=== PATIENT | male | born 1965 | race Caucasian/White ===

== ENCOUNTER 2022-06-18 08:03 | Day surgery (SDC) | payer SELFPAY ==
[2022-06-18] MEDS ORDERED: Sodium Chloride 0.9% 10 ML Syringe FLUSH PRN (08:45)
[2022-06-18] MEDS ORDERED: Lactated Ringers 1,000 ML IV SCH (08:45)
[2022-06-18] MEDS ORDERED: Glycopyrrolate 0.2 MG/ML 5 ML MDV IV ONE (09:00)
[2022-06-18] MEDS ORDERED: Propofol 200 MG/20 ML SDV IV ONE (09:00)
== END 2022-06-18 10:46 | disposition home or self-care (01) ==
LOC: FB.SDS 08:03
PROVIDERS: ATTEND Surgery
DX: D12.6 Benign neoplasm of colon, unspecified (principal); K57.30 Diverticulosis of large intestine without perforation or abscess without bleeding; K21.9 Gastro-esophageal reflux disease without esophagitis; F17.290 Nicotine dependence, other tobacco product, uncomplicated; G47.00 Insomnia, unspecified; Z79.899 Other long term (current) drug therapy; Z88.0 Allergy status to penicillin
CPT/HCPCS: 00811; 45381; 45385; 88305; J2704; J3490; J7120

== ENCOUNTER 2022-10-29 12:31 | Emergency (ER) | payer SELFPAY ==
[2022-10-29] MEDS ORDERED: Morphine 4 MG/ML VIAL IVPUSH ONE (12:56)
[2022-10-29] MEDS ORDERED: Sodium Chloride 0.9% 10 ML Syringe FLUSH PRN (12:56)
[2022-10-29] MEDS ORDERED: Ondansetron 4 MG/2 ML SDV IVPUSH ONE (12:56)
[2022-10-29] MEDS ORDERED: Sodium Chloride 0.9% 1,000 ML IV SCH (13:00)
[2022-10-29 13:30] LABS: ESTIMATED GFR 79 mL/min (>60)
[2022-10-29] MEDS ORDERED: Iopamidol 755 Mg/ML 100 ML Bottle IV ONE (13:53)
[2022-10-29] MEDS ORDERED: Aspirin 81 MG Tab.Chew PO STA (14:03)
[2022-10-29] MEDS ORDERED: Nitroglycerin 0.4 MG Tab.SL SL PRN (14:04)
[2022-10-29] MEDS ORDERED: Ketorolac 30 MG/ML SDV IVPUSH ONE (14:05)
== END 2022-10-29 16:16 | disposition home or self-care (01) ==
LOC: FB.ED 12:31
DX: N13.2 Hydronephrosis with renal and ureteral calculous obstruction (principal); Z88.0 Allergy status to penicillin; Z79.899 Other long term (current) drug therapy
CPT/HCPCS: 36415; 74177; 80053; 81001; 82150; 83690; 85025; 96361; 96374; 96375; 99283; 99284; J1885; J2270; J2405; J3490; J7030; Q9967

== ENCOUNTER 2023-07-07 12:16 | Emergency (ER) | payer SELFPAY | END 2023-07-07 13:21 | disposition home or self-care (01) | LOC: FB.ED 12:16 | DX: S61.012A Laceration without foreign body of left thumb without damage to nail, initial encounter (principal); Z88.0 Allergy status to penicillin; Z79.899 Other long term (current) drug therapy; F17.200 Nicotine dependence, unspecified, uncomplicated; W26.0XXA Contact with knife, initial encounter | CPT/HCPCS: 12002; 99282; 99283 ==

== ENCOUNTER 2024-12-03 02:12 | Emergency (ER) | payer MEDICAID ==
[2024-12-03] MEDS ORDERED: Sodium Chloride 0.9% 10 ML Syringe FLUSH PRN (02:45)
[2024-12-03 02:56] LABS: BASOPHILS ABSOLUTE AUTO 0.1 x10-3/uL (0.0-0.3); EOSINOPHILS ABSOLUTE AUTO 0.1 x10-3/uL (0.0-0.6); EOSINOPHILS PERCENT AUTO 1.7 % (0.1-6.8); HEMATOCRIT 47.3 % (38.3-50.1); HEMOGLOBIN 16.5 g/dL (12.9-17.7); LYMPHOCYTES ABSOLUTE AUTO 2.9 x10-3/uL (0.5-4.5); LYMPHOCYTES PERCENT AUTO 33.3 % (15.8-45.3); MEAN CORPUSCULAR HEMOGLOBIN 29.7 pg (27.0-33.3); MEAN CORPUSCULAR HGB CONC 34.8 g/dL (28.7-35.3); MEAN CORPUSCULAR VOLUME 85.4 fL (80.8-98.7); MEAN PLATELET VOLUME 8.3 fL (6.7-11.0); MONOCYTES ABSOLUTE AUTO 0.8 x10-3/uL (0.0-1.2); MONOCYTES PERCENT AUTO 8.9 % (5.5-15.2); NEUTROPHILS ABSOLUTE AUTO 4.7 x10-3/uL (1.7-6.9); NEUTROPHILS PERCENT AUTO 55.1 % (40.3-71.8); PLATELET COUNT,PLT 300 x10(3)uL (117-477); RED BLOOD CELL COUNT 5.54 x10(6)uL (3.90-5.90); RED CELL DISTRIBUTION WIDTH 14.9 % (12.4-15.0); WHITE BLOOD CELL COUNT,WBC 8.6 x10-3/uL (3.2-10.1)
[2024-12-03 03:02] LABS: BLOOD UREA NITROGEN,BUN 16 mg/dL (7-18); BUN/CREATININE RATIO 12.3 (9-20); CARBON DIOXIDE,CO2 27 mmol/L (21-32); CHLORIDE,CL 104 mmol/L (100-110); CREATININE 1.3 mg/dL (0.70-1.30); EST CRCL DRUG DOSING (CG) 61.94 mL/min; ESTIMATED GFR 64 mL/min (>60); GLUCOSE RANDOM 182 mg/dL (80-116); POTASSIUM,K 3.9 mmol/L (3.5-5.3); SODIUM,NA 141 mmol/L (135-145)
[2024-12-03 03:05] LABS: BILIRUBIN,URINE NEGATIVE (NEGATIVE); GLUCOSE,URINE NORMAL (NORMAL); KETONES,URINE NEGATIVE (NEGATIVE); LEUKOCYTE ESTERASE,URINE NEGATIVE (NEGATIVE); NITRITE,URINE NEGATIVE (NEGATIVE); OCCULT BLOOD,URINE NEGATIVE (NEGATIVE); PROTEIN,URINE NEGATIVE (NEGATIVE); UROBILINOGEN,URINE NORMAL (NEGATIVE)
[2024-12-03 03:07] LABS: APPEARANCE,URINE CLEAR (CLEAR); COLOR,URINE YELLOW (YELLOW)
[2024-12-03 03:08] LABS: A/G RATIO 1.1; ALANINE AMINOTRANSFERASE,ALT 34 U/L (12-36); ALBUMIN 3.4 g/dL (3.5-5.2); ALKALINE PHOSPHATASE 101 IU/L (56-112); ASPARTATE AMNIOTRANSFERASE,AST 21 IU/L (5-25); BILIRUBIN TOTAL 0.8 mg/dL (0.1-1.3); MAGNESIUM 1.9 mg/dL (1.8-2.5); PROTEIN TOTAL,TP 6.5 g/dL (6.0-8.0)
[2024-12-03] MEDS: Ondansetron 4 MG/2 ML SDV IVPUSH ONE (03:09)
[2024-12-03] MEDS: Sodium Chloride 0.9% 1,000 ML IV SCH (03:09)
[2024-12-03 03:13] LABS: C-REACTIVE PROTEIN < 0.50 mg/dL (<0.50); LIPASE 33 U/L (16-77); TROPONIN I 17.7 pg/mL (4.0-60.3)
[2024-12-03 03:14] LABS: ETHANOL BLOOD MEDICAL < 0.03 % (<0.03)
[2024-12-03] MEDS: Pantoprazole 40 MG Vial IVPUSH ONE (03:30)
[2024-12-03] MEDS: Sodium Chloride 0.9% 500 ML IV ONE (03:31)
[2024-12-03] MEDS: Iopamidol 755 Mg/ML 100 ML Bottle IV SCH (03:55)
== END 2024-12-03 04:47 | disposition home or self-care (01) ==
LOC: FB.ED 02:12
DX: K29.70 Gastritis, unspecified, without bleeding (principal); K29.80 Duodenitis without bleeding; Z88.0 Allergy status to penicillin
CPT/HCPCS: 36415; 74177; 80053; 80307; 81003; 83605; 83690; 83735; 84484; 85025; 86140; 93005; 93010; 96361; 96374; 96375; 99284; 99284-25; J2405; J2470; J7030; J7040; Q9967

== ENCOUNTER 2025-04-15 11:05 | Emergency (ER) | payer MEDICAID ==
[2025-04-15] MEDS: Ondansetron 4 MG/2 ML SDV IVPUSH ONE (11:18)
[2025-04-15] MEDS ORDERED: Sodium Chloride 0.9% 10 ML Syringe FLUSH PRN (11:18)
[2025-04-15] MEDS: diphenhydrAMINE 50 MG/ML SDV IVPUSH ONE (11:22)
[2025-04-15 11:52] LABS: BASOPHILS ABSOLUTE AUTO 0.1 x10-3/uL (0.0-0.3); BASOPHILS PERCENT AUTO 0.9 % (0.3-3.8); EOSINOPHILS ABSOLUTE AUTO 0.1 x10-3/uL (0.0-0.6); EOSINOPHILS PERCENT AUTO 1.7 % (0.1-6.8); LYMPHOCYTES ABSOLUTE AUTO 2.1 x10-3/uL (0.5-4.5); LYMPHOCYTES PERCENT AUTO 28.8 % (15.8-45.3); MEAN PLATELET VOLUME 8.8 fL (6.7-11.0); MONOCYTES ABSOLUTE AUTO 0.4 x10-3/uL (0.0-1.2); MONOCYTES PERCENT AUTO 6.1 % (5.5-15.2); NEUTROPHILS ABSOLUTE AUTO 4.6 x10-3/uL (1.7-6.9); NEUTROPHILS PERCENT AUTO 62.5 % (40.3-71.8); PLATELET COUNT,PLT 226 x10(3)uL (117-477); RED BLOOD CELL COUNT 5.40 x10(6)uL (3.90-5.90); RED CELL DISTRIBUTION WIDTH 12.4 % (12.4-15.0); WHITE BLOOD CELL COUNT,WBC 7.3 x10-3/uL (3.2-10.1)
[2025-04-15 11:56] LABS: BLOOD UREA NITROGEN,BUN 14 mg/dL (7-18); CARBON DIOXIDE,CO2 26 mmol/L (21-32); CHLORIDE,CL 105 mmol/L (100-110); CREATININE 1.3 mg/dL (0.70-1.30); EST CRCL DRUG DOSING (CG) 2.24 mL/min; ESTIMATED GFR 64 mL/min (>60); GLUCOSE RANDOM 184 mg/dL (80-116); POTASSIUM,K 4.3 mmol/L (3.5-5.3); SODIUM,NA 140 mmol/L (135-145)
[2025-04-15 12:02] LABS: A/G RATIO 1.0; ALANINE AMINOTRANSFERASE,ALT 60 U/L (12-36); ASPARTATE AMNIOTRANSFERASE,AST 33 IU/L (5-25); BILIRUBIN TOTAL 0.6 mg/dL (0.1-1.3); PROTEIN TOTAL,TP 7.1 g/dL (6.0-8.0)
[2025-04-15 12:40] LABS: GLUCOSE,URINE NORMAL (NORMAL); OCCULT BLOOD,URINE NEGATIVE (NEGATIVE)
[2025-04-15 12:41] LABS: APPEARANCE,URINE CLEAR (CLEAR); SQUAMOUS EPITHELIAL CELLS,UR RARE (NS,R,O)
== END 2025-04-15 13:23 ==
LOC: FB.ED 11:05
DX: R42 Dizziness and giddiness (principal); R11.2 Nausea with vomiting, unspecified; Z88.0 Allergy status to penicillin; Z79.899 Other long term (current) drug therapy
CPT/HCPCS: 80053; 81001; 83605; 83690; 85025; 86140; 96361; 96374; 96375; 99284; 99284-25; J1200; J2405; J7030